=== PATIENT | female | born 1990 | race Caucasian/White ===

== ENCOUNTER 2020-11-30 14:55 | Observation (INO) | payer OTHER ==
[2020-11-30 15:50] LABS: HEMOGLOBIN 14.3 gm/dl (12.3-15.3); RED BLOOD COUNT 4.86 M/UL (4.00-5.10); WHITE BLOOD COUNT 4.4 K/UL (4.5-11.0)
[2020-12-01] MEDS ORDERED: MACROBID 100 M100 MG PO (10:16)
[2020-12-01] MEDS ORDERED: AUGMENTIN 875-1 EACH PO (10:16)
== END 2020-12-01 15:10 | disposition home or self-care (01) ==
LOC: GENOP 14:55 → OB 15:48
PROVIDERS: Obstetrics & Gynecology; ADMIT Obstetrics & Gynecology
DX: O23.03 Infections of kidney in pregnancy, third trimester (principal); Z3A.31 31 weeks gestation of pregnancy; Z20.822 Contact with and (suspected) exposure to COVID-19
CPT/HCPCS: 36415; 81001; 85025; 87086; 96360; 96367; G0378; J0696; J2405; J7030; U0002